=== PATIENT | female | born 1970 | race African-American/Black ===

== ENCOUNTER 2021-08-20 11:35 | Observation (INO) | payer OTHER ==
[2021-08-20 11:54] VITALS: BMI 32.5
[2021-08-20] MEDS ORDERED: SODIUM CHLORIDE 0.9% 500 ML INFUS.BAG IV ONE ×2 (12:33→16:02)
[2021-08-20 13:34] LABS: BASO % 0.3 % (0-2.0); EOS % 0.4 % (0-4.5); HEMATOCRIT 41.5 % (32.4-45.2); HEMOGLOBIN 14.1 GM/dL (10.7-15.3); LYMPH % 23.8 % (8-40); MCH 28.3 pg (25.7-33.7); MCHC 33.9 g/dl (32.0-36.0); MEAN CELL VOLUME 83.4 fl (80-96); MEAN PLT VOLUME 8.7 fl (7.5-11.1); MONO % 8.8 % (3.8-10.2); NEUT % 66.7 % (42.8-82.8); PLATELET COUNT 296 10^3/uL (134-434); RBC 4.98 M/mm3 (3.60-5.2); RDW 13.1 % (11.6-15.6); WHITE BLOOD COUNT 10.3 K/mm3 (4.0-10.0)
[2021-08-20 13:53] LABS: ALBUMIN 4.4 g/dl (3.4-5.0); BLOOD UREA NITROGEN 9.4 mg/dL (7-18); CALCIUM 9.8 mg/dL (8.5-10.1)
[2021-08-20 13:56] LABS: CREATININE 1.2 mg/dL (0.55-1.3)
[2021-08-20 13:58] LABS: BILIRUBIN,TOTAL 0.8 mg/dL (0.2-1); TOT PROT 9.3 g/dl (6.4-8.2)
[2021-08-20 15:27] LABS: CHLORIDE 101 mmol/L (98-107); SODIUM 138 mmol/L (136-145)
[2021-08-20 15:28] LABS: CALCIUM 9.4 mg/dL (8.5-10.1)
[2021-08-20 15:29] LABS: BLOOD UREA NITROGEN 8.1 mg/dL (7-18); CO2 31 mmol/L (21-32); GLUCOSE,RANDOM 91 mg/dL (74-106); MAGNESIUM 2.1 mg/dL (1.8-2.4)
[2021-08-20 15:32] LABS: ANION GAP 6 MMOL/L (8-16)
[2021-08-20] MEDS ORDERED: POTASSIUM CHLORIDE TABS 20 MEQ TABLET.ER (FP) PO ONE ×2 (15:35→16:04)
[2021-08-20] MEDS ORDERED: KCL 10 MEQ IVPB 20 MEQ/200 ML INFUS.BAG IVPB ONE (16:05)
[2021-08-20] MEDS: KCL 10 MEQ IVPB 10 MEQ/100 ML INFUS.BAG IVPB SCH ×2 (16:18→17:41)
[2021-08-20 21:03] LABS: CALCIUM 9.2 mg/dL (8.5-10.1)
[2021-08-20 21:04] LABS: BLOOD UREA NITROGEN 6.9 mg/dL (7-18)
[2021-08-20 21:07] LABS: CREATININE 0.9 mg/dL (0.55-1.3)
[2021-08-21] MEDS ORDERED: LISINOPRIL 10 MG TABLET PO ONE (00:41)
[2021-08-21] MEDS ORDERED: LISINOPRIL 5 MG TABLET ONE (02:04)
[2021-08-21 06:50] LABS: HEMATOCRIT 39.6 % (32.4-45.2); HEMOGLOBIN 13.5 GM/dL (10.7-15.3); MCH 28.3 pg (25.7-33.7); MCHC 34.1 g/dl (32.0-36.0); MEAN PLT VOLUME 9.1 fl (7.5-11.1); PLATELET COUNT 254 10^3/uL (134-434); RBC 4.77 M/mm3 (3.60-5.2); RDW 13.5 % (11.6-15.6); WHITE BLOOD COUNT 9.9 K/mm3 (4.0-10.0)
[2021-08-21 07:21] LABS: BLOOD UREA NITROGEN 9.5 mg/dL (7-18); CALCIUM 9.5 mg/dL (8.5-10.1); MAGNESIUM 2.4 mg/dL (1.8-2.4)
[2021-08-21 07:24] LABS: PHOSPHOROUS 2.5 mg/dL (2.5-4.9)
[2021-08-21 07:25] LABS: CREATININE 0.9 mg/dL (0.55-1.3)
[2021-08-21] MEDS: INSULIN SLIDING SCALE (NOVOLOG) 1 VIAL SQ SCH ×2 (07:50→11:10)
[2021-08-21 08:48] LABS: ALBUMIN 3.9 g/dl (3.4-5.0); TOT PROT 8.3 g/dl (6.4-8.2)
[2021-08-21] MEDS ORDERED: metoPROLOL SUCCINATE 25 MG TAB.SR.24H (FP) ONE (09:25)
[2021-08-21] MEDS ORDERED: ENOXAPARIN NA (PORCINE) 40 MG/0.4 ML DISP.SYRIN SQ ONE (09:26)
[2021-08-21] MEDS ORDERED: ENOXAPARIN NA (PORCINE) 40 MG/0.4 ML DISP.SYRIN SQ SCH (10:00)
[2021-08-21] MEDS ORDERED: metoPROLOL SUCCINATE 25 MG TAB.SR.24H (FP) PO SCH (10:00)
[2021-08-21 10:08] LABS: EPI CELLS >36 /uL (0-25.1); HYALINE CASTS 0 /uL (0-3.1); PH,URINE 7.5 (5.0-8.0); URINE APPEARANCE CLEAR; URINE BACTERIA 1225 /uL (0-1359); URINE BILIRUBIN NEGATIVE (NEGATIVE); URINE COLOR YELLOW; URINE GLUCOSE (UA) NEGATIVE (NEGATIVE); URINE KETONE NEGATIVE (NEGATIVE); URINE LEUK ESTERASE NEGATIVE (NEGATIVE); URINE NITRITE NEGATIVE (NEGATIVE); URINE PROTEIN NEGATIVE (NEGATIVE); URINE RBC 9 /uL (0-23.9); URINE UROBILINOGEN 0.2 mg/dL (0.2-1.0); URINE WBC 8 /uL (0-25.8)
[2021-08-21 14:58] VITALS: BP 156/85; PULSE 86; TEMP 98.4
== END 2021-08-21 15:11 | disposition home or self-care (01) ==
LOC: JER 11:35 → JERBED 23:27
PROVIDERS: ADMIT Internal Medicine; ATTEND Internal Medicine
PROC: 3E023GC Introduction of Other Therapeutic Substance into Muscle, Percutaneous Approach (ICD-10-PCS; principal; 2021-08-20)
PROC: 3E033GC Introduction of Other Therapeutic Substance into Peripheral Vein, Percutaneous Approach (ICD-10-PCS; 2021-08-20)
PROC: 3E0337Z Introduction of Electrolytic and Water Balance Substance into Peripheral Vein, Percutaneous Approach (ICD-10-PCS; 2021-08-20)
DX: F41.9 Anxiety disorder, unspecified (principal); R25.3 Fasciculation; I10 Essential (primary) hypertension; E66.8 Other obesity; Z68.32 Body mass index [BMI] 32.0-32.9, adult; R00.0 Tachycardia, unspecified
CPT/HCPCS: 36415; 71046-TC-FY; 80048; 80053; 80061; 81003; 82040; 82962; 83735; 84100; 84155; 84439; 84443; 84484; 84703; 85025; 85027; 93005; 93010; 93306-TC; 99285-25; C9803; G0378; U0003; U0005